=== PATIENT | male | born 1955 | race Caucasian/White ===

== ENCOUNTER 2017-01-26 00:49 | Emergency (ER) | payer MEDICAID ==
[~2017-01-26] VITALS: Ht 182.9 cm; Wt 99.8 kg
[2017-01-26] MEDS ORDERED: TETANUS-DIPTH-ACEL PERTUSSIS 0.5ML SYRG IM ONE (01:00)
[2017-01-26] MEDS ORDERED: cefTRIAXone 1GM/50ML D5W 50 ML IV ONE (01:00)
[2017-01-26] MEDS: HYDROmorphone HCL 2 MG/ML VL IV ONE ×2 (01:17→01:22)
[2017-01-26] MEDS: ONDANSETRON HCL 4 MG/2 ML VIAL IV ONE ×2 (01:17→01:22)
[2017-01-26] MEDS ORDERED: ONDANSETRON HCL 4 MG/2 ML VIAL IV ONE (04:00)
[2017-01-26] MEDS ORDERED: HYDROmorphone HCL 2 MG/ML VL IV ONE (04:00)
[2017-01-26 04:20] VITALS: BP 138/82
== END 2017-01-26 04:26 | disposition home or self-care (01) ==
LOC: ER 00:49
DX: S62.515B Nondisplaced fracture of proximal phalanx of left thumb, initial encounter for open fracture (principal); S60.552A Superficial foreign body of left hand, initial encounter; I10 Essential (primary) hypertension; W26.9XXA Contact with unspecified sharp object(s), initial encounter; Y93.89 Activity, other specified; Y99.8 Other external cause status; Y92.89 Other specified places as the place of occurrence of the external cause
CPT/HCPCS: 29130; 73200; 96365; 96375; 99284; J0696; J1170; J2405